=== PATIENT | female | born 2000 | race Two or more races ===

== ENCOUNTER 2025-06-12 11:59 | Emergency (ER) | payer OTHER ==
[~2025-06-12] VITALS: Ht 157.5 cm; Wt 104.3 kg
[2025-06-12] MEDS ORDERED: LISINOPRIL2.5 MG PO (12:42)
[2025-06-12] MEDS ORDERED: LEVOCARNITINE330 M1 PO (12:42)
== END 2025-06-12 13:41 | disposition home or self-care (01) ==
LOC: ER 11:59
DX: S91.201A Unspecified open wound of right great toe with damage to nail, initial encounter (principal); X58.XXXA Exposure to other specified factors, initial encounter; Y93.89 Activity, other specified; Y92.89 Other specified places as the place of occurrence of the external cause; Y99.9 Unspecified external cause status; I10 Essential (primary) hypertension; Z91.013 Allergy to seafood